=== PATIENT | female | born 1955 | race Caucasian/White ===

== ENCOUNTER → 2016-05-28 | Outpatient (CLI) | payer BC ==
--- NOTE | 2016-05-28 09:50 | MM ---
Reason for exam: history of breast cancer, mastectomy. Last mammogram was performed 1 year ago. History: Patient is postmenopausal and has history of breast cancer at age 49. Retro-pectoral saline implant in the left breast, August 2003. Mastectomy of the left breast, August 2003. Stereotactic core biopsy of the left breast, July 09, 2003. Lumpectomy of the left breast, 2003. Core biopsy of the left breast. Excisional biopsy of the left breast. Taking antineoplastic for 5 years beginning at age 49. Physical Findings: Nurse did not find any significant physical abnormalities on exam. MG 3D Diag Mammo W/Cad RT CC, MLO, and XCCL view(s) were taken of the right breast. Prior study comparison: May 27, 2015, right breast MG 3d diag mammo w/cad RT. March 28, 2014, right breast MG diagnostic mammo RT w CAD. March 27, 2013, right diagnostic mammogram w/CAD. August 31, 2012, right diagnostic mammogram w/CAD. August 06, 2009, right breast diagnostic digital kindra. There are scattered fibroglandular densities. Stable asymmetric density superiorly and posteriorly. These results were verbally communicated with the patient and result sheet given to the patient on 05/28/16. ASSESSMENT: Negative, BI-RAD 1 RECOMMENDATION: Follow-up diagnostic mammogram of the right breast in 1 year.
--- NOTE | 2016-05-28 12:48 | XR ---
EXAMINATION TYPE: XR chest 2V DATE OF EXAM: 05/28/2016 10:01 AM COMPARISON: 05/27/2015 HISTORY: 61-year-old female follow-up breast cancer TECHNIQUE: Frontal and lateral views FINDINGS: The cardiomediastinal silhouette, aorta, and pulmonary vasculature are within normal limits. Mild int erstitial prominence is unchanged. Otherwise, lungs and pleural spaces are clear. IMPRESSION: Chronic changes without acute cardiopulmonary process.
== END | disposition home or self-care (01) ==
LOC: RADMAMWWP 08:51
PROVIDERS: ATTEND Internal Medicine Hematology & Oncology
DX: Z08 Encounter for follow-up examination after completed treatment for malignant neoplasm (principal); J98.4 Other disorders of lung; D72.819 Decreased white blood cell count, unspecified; E78.2 Mixed hyperlipidemia; E03.9 Hypothyroidism, unspecified; Z85.3 Personal history of malignant neoplasm of breast
CPT/HCPCS: 71020; G0206; G0279

== ENCOUNTER 2017-08-04 08:20 | Day surgery (SDC) | payer OTHER ==
[2017-07-28 09:28] VITALS: BMI 26.4
[~2017-08-04 08:20] MED LIST: LACTATED RINGERS 1,000 ML IV SCH; MOXIFLOXACIN HCL 0.5% DROPS 3 ML BTL OP ONE; TETRACAINE 0.5% OPHTH (PF) DROPS 4 ML BTL OP ONE; TIMOLOL 0.5% OPHTH DROPS 5 ML BTL OP ONE
[2017-08-04] MEDS: CYCLOPENTOLATE 1% OPHTH SOLN 2 ML BTL OP ONE ×3 (08:37→08:55)
[2017-08-04] MEDS: PHENYLEPHRINE 2.5% OPHTH DRP 2ML OP NR ×3 (08:40→09:01)
[2017-08-04 08:41] VITALS: RESP 16; TEMP 97.2
[2017-08-04] MEDS ORDERED: LIDOCAINE 1% (PF) 10MG/ML VIAL MISCELLANE ONE (09:49)
[2017-08-04] MEDS ORDERED: BALANCED SALT IRRIG SOLN COMB2 15 ML IRRIG.SOLN INTRAOCULA ONE (09:49)
[2017-08-04] MEDS ORDERED: DUOVISC KIT (GREEN BOX) INTRAOCULA ONE (09:50)
[2017-08-04] MEDS ORDERED: MIDAZOLAM 2 MG/2 ML VIAL ONE (09:53)
[2017-08-04] MEDS ORDERED: fentaNYL (PF) 50 MCG/ML 2 ML AMP ONE (09:53)
[2017-08-04] MEDS ORDERED: EPINEPHrine (PF) 0.3 ML in BALANCED SALT IRRIG SOLN COMB2 500 ML IRRIGATION ONE (10:23)
[2017-08-04] MEDS ORDERED: ATROPINE OPHTH SOLN 1% 5ML BTL RIGHT EYE ONE (10:27)
--- NOTE | 2017-08-04 10:30 | P.OP ---
Date of Procedure: 08/04/17 Preoperative Diagnosis: NS & CS & PSC Postoperative Diagnosis: same Procedure(s) Performed: PIOL, OD Implants: crystalensw AO1 UV Anesthesia: MAC Surgeon: Keshawn Eubanks Pathology: none sent Condition: stable Disposition: same day Indications for Procedure: blurry vision Operative Findings: NO complications
[2017-08-04 10:36] VITALS: PULSE 61
[2017-08-04 10:57] VITALS: BP 114/64
--- NOTE | 2017-08-05 01:44 | OP ---
OPERATIVE REPORT DATE OF SURGERY: August 04, 2017. PROCEDURE PERFORMED: Phacoemulsification of cataract and intraocular lens implant of the right eye. PREOPERATIVE DIAGNOSES: Nuclear sclerosis and cortical sclerosis. Posterior subcapsular cataract. POSTOPERATIVE DIAGNOSES: Nuclear sclerosis and cortical sclerosis. Posterior subcapsular cataract. OPERATION: Phacoemulsification of cataract and Crystalens implant of the right eye. NARRATIVE:: After obtaining the appropriate consent, the patient was brought to the operating room. There the patient was placed under cardiac monitoring, prepped and draped in the usual sterile manner. The patient was approached from the right temporal side. The 5.5 mm Mike ring inked in gentian caitlin was placed centrally on the cornea. At the 11 o'clock position, a 1.1 mm keratome was used to create a paracentesis port. Through this opening, 1% Xylocaine MPF 50/50 mix with balanced salt solution was injected into the anterior chamber. This was followed by stabilization of the anterior chamber with Amvisc viscoelastic. At the 9 o'clock position, a 2.75 mm brent keratome was used to create a self-scaling corneal flap incision in a Langerman fashion. Through this opening, a cystotome was introduced to begin a continuous tear capsulorrhexis which was completed using the Utrata forceps. Care was taken to ensure that the capsulorrhexis was at least the size of the panchito on the anterior cornea. Hydrodissection and hydrodelineation of the lens was accomplished with balanced salt solution. Phacoemulsification of the lens utilizing phaco chop was accomplished in 2.93 seconds at 7% power. Addition Xylocaine MPF was instilled into the anterior chamber. This was followed by removal of the remaining cortex under irrigation and aspiration along with careful polishing of the posterior capsule in a capsule vacuum mode. Additional Amvisc viscoelastic was then used to stabilize the capsular bag, and the Bausch and Lomb Crystalens AO1UV intraocular lens was injected into the capsular bag without difficult. The lens was rotated 270 degrees so that the haptics resided at the 6 and 12 o' clock positions, and all remaining viscoelastic was then removed from within the capsular bag and around the anterior chamber. The eye was brought to normal intraocular pressure through the paracentesis port along with slight hydration of the incision sites. Watertight integrity was confirmed using a fluorescein strip. The patient then received 2 drops of 0.5% timolol followed by 2 drops of Vigamox and 2 drops of 1 % atropine. The patient was then lightly patched and shielded in the usual manner. There was no complications from the procedure. The patient tolerated the procedure well and was returned to outpatient recovery in good condition. LINH / YAIR: [id number] / MTDD
== END 2017-08-04 11:32 | disposition home or self-care (01) ==
LOC: OR 08:20
PROVIDERS: ATTEND Ophthalmology
DX: H25.13 Age-related nuclear cataract, bilateral (principal); E03.9 Hypothyroidism, unspecified; F41.9 Anxiety disorder, unspecified; H52.11 Myopia, right eye; H25.043 Posterior subcapsular polar age-related cataract, bilateral; H52.4 Presbyopia; Z85.3 Personal history of malignant neoplasm of breast; Z79.899 Other long term (current) drug therapy; Z90.12 Acquired absence of left breast and nipple
CPT/HCPCS: 66984; V2632; V2788; J2250; J0171; J3010; J2001

== ENCOUNTER → 2017-08-23 | Outpatient (CLI) | payer OTHER ==
--- NOTE | 2017-08-23 13:03 | XR ---
EXAMINATION TYPE: XR chest 2V DATE OF EXAM: 08/23/2017 COMPARISON: 05/28/1969 HISTORY: Annual exam. History of breast cancer. TECHNIQUE: Frontal and lateral views of the chest are obtained. FINDINGS: There is no focal air space opacity, pleural effusion, or pneumothorax seen. The cardiac silhouette size is within normal limits. The osseous structures are intact. Minimal degenerative ch anges of the thoracic spine and right acromioclavicular joint are present. IMPRESSION: No acute cardiopulmonary process.
--- NOTE | 2017-08-23 13:39 | MM ---
Reason for exam: additional evaluation requested from prior study. Last mammogram was performed 1 year and 3 months ago. History: Patient is postmenopausal and has history of breast cancer at age 49. Retro-pectoral saline implant in the left breast, August 2003. Mastectomy of the left breast, August 2003. Stereotactic core biopsy of the left breast, July 09, 2003. Lumpectomy of the left breast, 2003. Core biopsy of the left breast. Excisional biopsy of the left breast. Taking antineoplastic for 5 years beginning at age 49. Physical Findings: Nurse Summary: 1 x 1cm nodule in the right breast at 4 o'clock (nurse ts). MG 3D Diag Mammo W/Cad RT CC and MLO view(s) were taken of the right breast. Prior study comparison: May 28, 2016, right breast MG 3d diag mammo w/cad RT. May 27, 2015, right breast MG 3d diag mammo w/cad RT. The breast tissue is heterogeneously dense. This may lower the sensitivity of mammography. Benign calcifications. No suspicious abnormality. These results were verbally communicated with the patient and result sheet given to the patient on 08/23/17. ASSESSMENT: Incomplete: need additional imaging evaluation, BI-RAD 0 RECOMMENDATION: Ultrasound of the right breast. (palpable area per nursing)
--- NOTE | 2017-08-23 13:42 | USB ---
Reason for exam: additional evaluation requested from abnormal screening. History: Patient is postmenopausal and has history of breast cancer at age 49. Retro-pectoral saline implant in the left breast, August 2003. Mastectomy of the left breast, August 2003. Stereotactic core biopsy of the left breast, July 09, 2003. Lumpectomy of the left breast, 2003. Core biopsy of the left breast. Excisional biopsy of the left breast. Taking antineoplastic for 5 years beginning at age 49. US Breast Limited RT Right breast ultrasound demonstrates no cystic or solid lesion seen. No suspicious sonographic finding. These results were verbally communicated with the patient and result sheet given to the patient on 08/23/17. ASSESSMENT: Negative, BI-RAD 1 RECOMMENDATION: Routine screening mammogram of both breasts in 1 year.
== END | disposition home or self-care (01) ==
LOC: RADMAMWWP 10:43
PROVIDERS: ATTEND Internal Medicine Hematology & Oncology
DX: R92.8 Other abnormal and inconclusive findings on diagnostic imaging of breast (principal); D72.819 Decreased white blood cell count, unspecified; E03.9 Hypothyroidism, unspecified; E78.2 Mixed hyperlipidemia; Z17.0 Estrogen receptor positive status [ER+]; Z90.12 Acquired absence of left breast and nipple; Z85.3 Personal history of malignant neoplasm of breast
CPT/HCPCS: 71046; 77065; 76642; G0279

== ENCOUNTER → 2017-09-01 | Day surgery (SDC) | payer OTHER ==
[2017-08-31 09:43] VITALS: BMI 26.6
[~2017-09-01] MED LIST changes: +ATROPINE OPHTH SOLN 1% 5ML BTL LEFT EYE ONE; +BALANCED SALT IRRIG SOLN COMB2 15 ML IRRIG.SOLN IRRIGATION ONE; +EPINEPHrine (PF) 0.3 ML in BALANCED SALT IRRIG SOLN COMB2 500 ML IRRIGATION ONE; +HYALURONATE SODIUM INTRAOCULAR 1 EACH SYRINGE (12MG/ML) INTRAOCULA ONE; +LIDOCAINE 1% (PF) 10MG/ML VIAL SQ ONE; +LIDOCAINE 1% 20 ML VIAL (10MG/ML) FOR IV START INTRADERMA PRN; +MIDAZOLAM 2 MG/2 ML VIAL IV PRN; +MIDAZOLAM 2 MG/2 ML VIAL ONE; +fentaNYL (PF) 50 MCG/ML 2 ML AMP ONE
[2017-09-01] MEDS: PHENYLEPHRINE 2.5% OPHTH DRP 2ML OP NR ×3 (07:05→07:17)
[2017-09-01] MEDS: CYCLOPENTOLATE 1% OPHTH SOLN 2 ML BTL OP ONE ×3 (07:08→07:21)
[2017-09-01 07:19] VITALS: TEMP 97.3
--- NOTE | 2017-09-01 08:36 | P.OP ---
Date of Procedure: 09/01/17 Preoperative Diagnosis: NS & CS & PSC Postoperative Diagnosis: same Procedure(s) Performed: PIOL, OS Implants: B&L AO1UV Anesthesia: MAC Surgeon: Keshawn Eubanks Estimated Blood Loss (ml): 0 Pathology: none sent Condition: stable Disposition: same day Indications for Procedure: blurry vision Operative Findings: no complications
[2017-09-01 08:52] VITALS: BP 127/70; PULSE 52; RESP 16
--- NOTE | 2017-09-01 12:25 | OP ---
OPERATIVE REPORT DATE OF SERVICE: 09/01/2017 PROCEDURE: Phacoemulsification of cataract and intraocular lens implant of the left eye. PREOPERATIVE DIAGNOSIS: Nuclear sclerosis and cortical sclerosis. POSTOPERATIVE DIAGNOSIS:: Subcapsular cataract. NARRATIVE: After obtaining the appropriate consent, the patient was brought to the operating room. There the patient was placed under cardiac monitoring, prepped and draped in the usual sterile manner. The patient was approached from the left temporal side. The Mike ring inked in gentian caitlin was placed centrally on the cornea. At the 11 o'clock position, a 1.1 mm keratome was used to create a paracentesis port. Through this opening, 1% Xylocaine MPF 50/50 mix with balanced salt solution was injected into the anterior chamber. This was followed by stabilization of the anterior chamber with Amvisc viscoelastic. At the 9 o'clock position, a 2.75 mm brent keratome was used to create a self-scaling corneal flap incision in a Langerman fashion. Through this opening, a cystotome was introduced to begin a continuous tear capsulorrhexis which was completed using the Utrata forceps. Care was taken to ensure that the capsulorrhexis was at least the size of the panchito on the anterior cornea. Hydrodissection and hydrodelineation of the lens was accomplished with balanced salt solution. Phacoemulsification of the lens utilizing phaco chop was accomplished in 3.31 seconds at 7% power. Addition Xylocaine MPF was instilled into the anterior chamber. This was followed by removal of the remaining cortex under irrigation and aspiration along with careful polishing of the posterior capsule in a capsule vacuum mode. Additional Amvisc viscoelastic was then used to stabilize the capsular bag, and the Bausch and Lomb Modal AO1UV 19.75 Diopters Crystalens intraocular lens was injected into the capsular bag without difficult. The lens was rotated 270 degrees so that the haptics resided at the 6 and 12 o'clock positions, and all remaining viscoelastic was then removed from within the capsular bag and around the anterior chamber. The eye was brought to normal intraocular pressure through the paracentesis port along with slight hydration of the incision sites. Watertight integrity was confirmed using a fluorescein strip. The patient then received 2 drops of 0.5% timolol followed by 2 drops of Vigamox and 2 drops of 1% atropine. The patient was then lightly patched and shielded in the usual manner. There was no complications from the procedure. The patient tolerated the procedure well and was returned to outpatient recovery in good condition. MMJORJE / LISAN: [id number] /
== END | disposition home or self-care (01) ==
LOC: OR 06:32
PROVIDERS: ATTEND Ophthalmology
DX: H25.12 Age-related nuclear cataract, left eye (principal); H25.012 Cortical age-related cataract, left eye; H25.042 Posterior subcapsular polar age-related cataract, left eye; H52.4 Presbyopia; H52.11 Myopia, right eye; F41.9 Anxiety disorder, unspecified; E03.9 Hypothyroidism, unspecified; Z98.41 Cataract extraction status, right eye; Z96.1 Presence of intraocular lens; Z90.12 Acquired absence of left breast and nipple; Z85.3 Personal history of malignant neoplasm of breast; Z79.899 Other long term (current) drug therapy
CPT/HCPCS: 66984; V2632; V2788; J2250; J0171; J3010; J2001

== ENCOUNTER → 2018-09-13 | Outpatient (CLI) | payer OTHER ==
--- NOTE | 2018-09-13 13:22 | MM ---
Reason for exam: additional evaluation requested from prior study. Last mammogram was performed 1 year and 1 month ago. History: Patient is postmenopausal and has history of breast cancer at age 49. Retro-pectoral saline implant in the left breast, August 2003. Mastectomy of the left breast, August 2003. Stereotactic core biopsy of the left breast, July 09, 2003. Lumpectomy of the left breast, 2003. Core biopsy of the left breast. Excisional biopsy of the left breast. Took hormonal contraceptives for 30 years beginning at age 19. Took progesterone for 4 years beginning at age 45. Taking antineoplastic for 5 years beginning at age 49. Physical Findings: Nurse did not find any significant physical abnormalities on exam. MG 3D Diag Mammo W/Cad RT CC and MLO view(s) were taken of the right breast. Prior study comparison: August 23, 2017, right breast MG 3d diag mammo w/cad RT. May 28, 2016, right breast MG 3d diag mammo w/cad RT. The breast tissue is heterogeneously dense. This may lower the sensitivity of mammography. Benign appearing calcifictions in the right breast. No suspicious abnormality. No significant new findings when compared with previous films. These results were verbally communicated with the patient and result sheet given to the patient on 09/13/18. ASSESSMENT: Benign, BI-RAD 2 RECOMMENDATION: Routine screening mammogram of the right breast in 1 year.
== END | disposition home or self-care (01) ==
LOC: RADMAMWWP 12:37
PROVIDERS: ATTEND Internal Medicine Hematology & Oncology
DX: R92.8 Other abnormal and inconclusive findings on diagnostic imaging of breast (principal); Z85.3 Personal history of malignant neoplasm of breast
CPT/HCPCS: 77061; 77065

== ENCOUNTER → 2020-01-22 | Outpatient (CLI) | payer OTHER ==
--- NOTE | 2020-01-22 15:06 | MM ---
Reason for exam: additional evaluation requested from prior study. Last mammogram was performed 1 year and 4 months ago. History: Patient is postmenopausal and has history of breast cancer at age 49. Retro-pectoral saline implant in the left breast, August 2003. Mastectomy of the left breast, August 2003. Stereotactic core biopsy of the left breast, July 09, 2003. Lumpectomy of the left breast, 2003. Core biopsy of the left breast. Excisional biopsy of the left breast. Took hormonal contraceptives for 30 years beginning at age 19. Took progesterone for 4 years beginning at age 45. Taking antineoplastic for 5 years beginning at age 49. Physical Findings: Nurse did not find any significant physical abnormalities on exam. MG 3D Diag Mammo W/Cad RT CC and MLO view(s) were taken of the right breast. Prior study comparison: September 13, 2018, right breast MG 3d diag mammo w/cad RT. August 23, 2017, right breast MG 3d diag mammo w/cad RT. There are scattered fibroglandular densities. Focal asymmetry right upper MLO view, stable. No significant new findings when compared with previous films. These results were verbally communicated with the patient and result sheet given to the patient on 01/22/20. ASSESSMENT: Benign, BI-RAD 2 RECOMMENDATION: Follow-up diagnostic mammogram of the right breast in 1 year.
--- NOTE | 2020-01-22 15:21 | XR ---
EXAMINATION TYPE: XR chest 2V DATE OF EXAM: 01/22/2020 COMPARISON: 08/23/2017 INDICATION: Yearly checkup TECHNIQUE: Frontal and lateral views of the chest are obtained. FINDINGS: The heart size is normal. The pulmonary vasculature is normal. The lungs are clear. Spondylosis is within the thoracic spine. IMPRESSION: 1. No acute pulmonary process.
== END | disposition home or self-care (01) ==
LOC: RADMAMWWP 14:21
PROVIDERS: ATTEND Obstetrics & Gynecology
DX: Z12.31 Encounter for screening mammogram for malignant neoplasm of breast (principal); C50.112 Malignant neoplasm of central portion of left female breast; D72.819 Decreased white blood cell count, unspecified; E03.9 Hypothyroidism, unspecified; Z85.3 Personal history of malignant neoplasm of breast; Z17.0 Estrogen receptor positive status [ER+]
CPT/HCPCS: 71046; 77061; 77065

== ENCOUNTER → 2021-01-29 | Outpatient (CLI) | payer MEDICARE ==
--- NOTE | 2021-01-29 11:36 | MM ---
Reason for exam: additional evaluation requested from prior study. Last mammogram was performed 1 year ago. History: Patient is postmenopausal and has history of breast cancer at age 49. Retro-pectoral saline implant in the left breast, August 2003. Mastectomy of the left breast, August 2003. Stereotactic core biopsy of the left breast, July 09, 2003. Lumpectomy of the left breast, 2003. Core biopsy of the left breast. Excisional biopsy of the left breast. Took hormonal contraceptives for 30 years beginning at age 19. Took progesterone for 4 years beginning at age 45. Taking antineoplastic for 5 years beginning at age 49. Physical Findings: Nurse did not find any significant physical abnormalities on exam. MG 3D Diag Mammo W/Cad RT CC and MLO view(s) were taken of the right breast. Prior study comparison: January 22, 2020, right breast MG 3d diag mammo w/cad RT. September 13, 2018, right breast MG 3d diag mammo w/cad RT. August 23, 2017, right breast MG 3d diag mammo w/cad RT. There are scattered fibroglandular densities. No significant new findings when compared with previous films. These results were verbally communicated with the patient and result sheet given to the patient on 01/29/21. ASSESSMENT: Benign, BI-RAD 2 RECOMMENDATION: Follow-up diagnostic mammogram of the right breast in 1 year.
== END | disposition home or self-care (01) ==
LOC: RADMAMWWP 10:33
PROVIDERS: ATTEND Obstetrics & Gynecology
DX: R92.2 Inconclusive mammogram (principal); Z85.3 Personal history of malignant neoplasm of breast
CPT/HCPCS: 77065; G0279; 77061

== ENCOUNTER → 2022-02-04 | Outpatient (CLI) | payer MEDICARE ==
--- NOTE | 2022-02-04 13:19 | MM ---
Reason for Exam: Hx of breast cancer, mastectomy. Last screening mammogram was performed 12 month(s) ago. Patient History: Menarche at age 12. First Full-Term at age 22. Postmenopausal. Patient has history of breast feeding. Breast cancer, left, age 49. Progesterone for 4 years from age 45 until age 49. Hormonal Contraceptives, from age 19 until age 25. 08/2003, Mastectomy on the Left side. Core Biopsy on the Left side. 2003, Lumpectomy on the Left side. Excisional Biopsy on the Left side. 08/2003, Implant on the left side. Prior Study Comparison: 09/13/2018 Right Diagnostic Mammogram, [facility]. 01/22/2020 Right Diagnostic Mammogram, [facility]. 01/29/2021 Right Diagnostic Mammogram, [facility]. Tissue Density: Right: There are scattered fibroglandular densities. Findings: Analyzed By CAD. There are benign oil cyst and vascular calcifications. Asymmetric density superior posterior right MLO view remains unchanged. No significant change from prior exams. Overall Assessment: Benign, BI-RAD 2 Management: Screening Mammogram of the right breast in 1 year. 1. Patient should continue monthly self breast exams. 2. A clinical breast exam by your physician is recommended on an annual basis. 3. This exam should not preclude additional follow-up of suspicious palpable abnormalities. Results were given to the patient verbally at the time of exam. Electronically signed and approved by: Kelly Dee M.D. Radiologist
== END | disposition home or self-care (01) ==
LOC: RADMAMWWP 12:09
PROVIDERS: ATTEND Obstetrics & Gynecology
DX: C50.912 Malignant neoplasm of unspecified site of left female breast (principal); Z85.3 Personal history of malignant neoplasm of breast; Z78.0 Asymptomatic menopausal state
CPT/HCPCS: 77065; G0279; 77061

== ENCOUNTER → 2023-02-05 | Outpatient (CLI) | payer MEDICARE ==
--- NOTE | 2023-02-09 12:45 | MM ---
Reason for Exam: Hx of breast cancer, mastectomy. Last screening mammogram was performed 12 month(s) ago. Patient History: Menarche at age 12. First Full-Term at age 22. Postmenopausal. Patient has history of breast feeding. Breast cancer, left, age 49. Progesterone for 4 years from age 45 until age 49. Hormonal Contraceptives, from age 19 until age 25. 08/2003, Mastectomy on the Left side. Core Biopsy on the Left side. 2003, Lumpectomy on the Left side. Excisional Biopsy on the Left side. 08/2003, Implant on the left side. Prior Study Comparison: 05/27/2015 Right Diagnostic Mammogram, [facility]. 05/28/2016 Right Diagnostic Mammogram, [facility]. 08/23/2017 Right Diagnostic Mammogram, [facility]. 09/13/2018 Right Diagnostic Mammogram, [facility]. 01/22/2020 Right Diagnostic Mammogram, [facility] 01/29/2021 Right Diagnostic Mammogram, [facility]. 02/04/2022 Right MG 3D diag mammo w/cad RT, [facility]. Tissue Density: Right: There are scattered fibroglandular densities. Findings: Analyzed By CAD. Pattern appears stable. Benign calcifications remain present. There is a stable focal asymmetry in the upper right mediolateral oblique view. No suspicious groups of microcalcifications, spiculated or lobular masses, architectural distortion or other secondary signs of malignancy are mammographically apparent. Overall Assessment: Benign, BI-RAD 2 Management: Screening Mammogram of the right breast in 1 year. A negative mammogram report should not preclude additional follow up of suspicious palpable abnormalities. Patient should continue monthly self breast exam. A clinical breast exam by your physician is recommended on an annual basis and results should be correlated with mammographic findings. Electronically signed and approved by: Eduardo Bruno D.O. Radiologis
== END | disposition home or self-care (01) ==
LOC: RADMAMWWP 10:41
PROVIDERS: ATTEND Internal Medicine Hematology & Oncology
DX: Z12.31 Encounter for screening mammogram for malignant neoplasm of breast (principal); Z78.0 Asymptomatic menopausal state; Z85.3 Personal history of malignant neoplasm of breast
CPT/HCPCS: 77067

== ENCOUNTER → 2024-02-07 | Outpatient (CLI) | payer MEDICARE ==
--- NOTE | 2024-02-08 09:09 | MM ---
Reason for Exam: Hx of breast cancer, mastectomy. Last screening mammogram was performed 12 month(s) ago. Patient History: Menarche at age 12. First Full-Term at age 22. Postmenopausal. Patient has history of breast feeding. Breast cancer, left, age 49. Progesterone for 4 years from age 45 until age 49. Hormonal Contraceptives, from age 19 until age 25. 08/2003, Mastectomy on the Left side. Core Biopsy on the Left side. 2003, Lumpectomy on the Left side. Excisional Biopsy on the Left side. 08/2003, Implant on the left side. Prior Study Comparison: 01/29/2021 Right Diagnostic Mammogram, [facility]. 02/04/2022 Right MG 3D diag mammo w/cad RT, [facility]. 02/05/2023 Right MG 3D scr kindra unilateral w/cad., [facility]. Tissue Density: Right: The breasts are heterogeneously dense, which may obscure small masses. Findings: Right breast: There is no suspicious group of microcalcifications or new suspicious mass. Benign-appearing calcifications right breast. Overall Assessment: Benign, BI-RAD 2 Management: Screening Mammogram of both breasts in [address] [facility] will attempt to contact patient to return for supplemental views and ultrasound if indicated. Patient should continue monthly self-breast exams. A clinical breast exam by your physician is recommended on an annual basis. This exam should not preclude additional follow-up of suspicious palpable abnormalities. Note on Mary Beth scores and lifetime risk: 1. A Mary Beth score greater than 3% is considered moderate risk. If this is the case, consider specialist referral to assess eligibility for a risk reducing agent. 2. If overall lifetime risk for the development of breast cancer is 20% or higher, the patient may qualify for future screening with alternating mammogram and breast MRI. [facility], , 02/08/2024 9:05 AM. Electronically signed and approved by: Sumanth Luna DO
--- NOTE | 2024-02-09 22:43 | BD ---
EXAMINATION TYPE: Axial Bone Density DATE OF EXAM: 02/07/2024 CLINICAL HISTORY: 68 years old Female. ICD-10 CODE: N95.1 POST MENOPAUSAL Height: 65.25" Weight: 163lbs FRAX RISK QUESTIONS: Alcohol (3 or more units per day): No Family History (Parent hip fracture): Yes, Mother Glucocorticoids (More than 3mos): No (Ex: prednisone, prednisolone, methylprednisolone, dexamethasone, and hydrocortisone). History of Fracture in Adulthood: No Secondary Osteoporosis: 1. Type 1 Diabetes: No 2. Hyperthyroidism: No 3. Menopause before 45: No 4. Malnutrition: No 5. 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 Bone mineral density as measured about the Lumbar spine is: ----- L1-L4(G/cm2): 1.595 T Score Values are as follows: ----- L1: 2.5 ----- L2: 3.1 ----- L3: 4.5 ----- L4: 3.3 ----- L1-L4: 3.5 Z Score Values are as follows: ----- L1: 3.9 ----- L2: 4.4 ----- L3: 5.8 ----- L4: 4.7 ----- L1-L4: 4.8 Baseline @MPH Bone mineral density about the R hip (g/cm2): 1.057 Bone mineral density about the L hip (g/cm2): 1.074 T Score values are as follows: -----R Neck: -0.1 -----L Neck: -0.1 -----R Total: 0.4 -----L Total: 0.5 Z Score values are as follows: -----R Neck: 1.3 -----L Neck: 1.3 -----R Total: 1.6 -----L Total: 1.7 Baseline @MPH FRAX%s: The graph provided illustrates a 11.9% chance for a major osteoporotic fx and a 0.6% chance f or the hips probability for fx in 10 years time. IMPRESSION: Normal (Values between +1 and -1 indicate normal bone mass). Consider repeating this study in 5 year s or sooner if there is some new clinical indication. NOTE: T-SCORE=SD OF THE YOUNG ADULT MEAN. [facility], , 02/09/2024 10:41 PM
== END | disposition home or self-care (01) ==
LOC: RADMAMWWP 13:53
PROVIDERS: ATTEND Obstetrics & Gynecology
DX: Z12.31 Encounter for screening mammogram for malignant neoplasm of breast (principal); Z78.0 Asymptomatic menopausal state; R92.331 Mammographic heterogeneous density, right breast
CPT/HCPCS: 77067; 77080